=== PATIENT | male | born 1995 | race Caucasian/White ===

== ENCOUNTER 2017-08-22 09:28 | Emergency (ER) | payer MEDICAID ==
[~2017-08-22] VITALS: Ht 185.4 cm; Wt 83.9 kg
[2017-08-22 10:58] VITALS: BP 134/72
== END 2017-08-22 11:01 | disposition home or self-care (01) ==
LOC: ER 09:28
DX: R30.0 Dysuria (principal); Z87.891 Personal history of nicotine dependence